=== PATIENT | male | born 1955 | race Hispanic/Latino ===

== ENCOUNTER → 2025-06-18 | Outpatient (CLI) | payer MEDICARE ==
[~2025-06-18] MED LIST: GADOTERATE MEGLUMINE 10 MMOL/20 ML VIAL IV ONE
--- NOTE | 2025-06-19 08:39 | HMCIMG ---
EXAMINATION: MR Abdomen with and without Intravenous Contrast. CLINICAL HISTORY: Patient evaluated for abnormal findings on prior imaging of the liver and biliary tract. COMPARISON: None provided. TECHNIQUE: Multisequence, multiplanar magnetic resonance images of the abdomen were obtained before and after intravenous contrast administration. CONTRAST: Administered intravenously. FINDINGS: LOWER THORAX: No pleural effusion. LIVER: Few small hepatic cysts, largest measuring approximately 2.5 x 2.1 x 2.4 cm in segment IV. GALLBLADDER AND BILE DUCTS: No gallstones or ductal stones. No biliary ductal dilatation. PANCREAS: Unremarkable. No ductal dilation. SPLEEN: Unremarkable. ADRENALS: Unremarkable. KIDNEYS: Few small bilateral renal cysts, largest measuring approximately 0.9 x 0.8 x 0.9 cm in the upper pole of the right kidney. No hydronephrosis or mass. STOMACH AND BOWEL: Limited evaluation of the stomach and bowel demonstrates no acute abnormality. LYMPH NODES: No lymphadenopathy. VASCULATURE: No abdominal aortic aneurysm. SOFT TISSUES: Right pericardial cyst measuring 5 x 5.9 x 5 cm. IMPRESSION: Right pericardial cyst measuring 5 x 5.9 x 5 cm (incompletely imaged on this exam). No gallstones or ductal stones. No biliary ductal dilatation. Hepatic cysts. Bilateral renal cysts. No acute intra-abdominal abnormality. /Castillo
== END | disposition home or self-care (01) ==
LOC: RAH 08:38
PROVIDERS: ATTEND Internal Medicine Gastroenterology
DX: I31.8 Other specified diseases of pericardium (principal); N28.1 Cyst of kidney, acquired; K76.89 Other specified diseases of liver; R93.2 Abnormal findings on diagnostic imaging of liver and biliary tract
CPT/HCPCS: 74183; A9575